=== PATIENT | male | born 1955 | race Caucasian/White ===

== ENCOUNTER → 2017-01-07 | Outpatient (CLI) | payer OTHER ==
[2016-04-23 00:33] VITALS: BP 106/60
[~2017-01-07] MED LIST: CYCL10TA2 PO; HYDR-971 PO; IOHEXOL 300 MG/ML 75 ML VIAL IV ONE; LISI-334 PO; NAPR250T2 PO; OMEP10CA PO; PRED20TA PO
--- NOTE | 2017-01-07 15:27 | RAD ---
CTA of the neck with contrast 01/07/2017 Clinical history: Carotid stenosis. Technique: After the intravenous administration of 75 cc of Omnipaque 300, contiguous, 0.625 mm axial sections were obtained through the upper chest and neck. Multiplanar 3-D MIP and 3-D volume rendered reconstructed images were performed. One or more of the following individualized dose reduction techniques were utilized for this study: 1. Automated exposure control. 2. Adjustment of the mA and/or kV according to patient size. 3. Use of iterative reconstruction technique. Stenosis calculations for CTA are based upon the NASCET methodology. Findings: There is a common origin of the brachiocephalic and left common carotid artery from the thoracic aortic arch. As a normal variation. This origin is patent. The origin of the left subclavian artery is patent. The origins of the brachiocephalic, common carotid, right common carotid artery and both vertebral arteries are patent. Mild to moderate atheromatous/atherosclerotic plaque formation is seen involving both carotid bifurcations and proximal internal carotid arteries, right greater than left. A 75% stenosis (using NASCET criteria) is seen involving the proximal right internal carotid artery at its origin. This measures 8 mm in length. No hemodynamically significant stenosis is seen involving the left carotid bifurcation. The left vertebral artery is dominant. Both vertebral arteries demonstrate normal antegrade flow. No area of stenosis or occlusion is seen. No acute soft tissue abnormality is seen involving the neck. Degenerative changes are seen involving the uncovertebral and facet joints throughout the mid and lower cervical disc spaces. Impression: Mild to moderate atheromatous/atherosclerotic plaque formation seen involving both carotid bifurcations, right greater than left. A stenosis of 75% is seen involving the proximal right internal carotid artery at its origin.
== END | disposition home or self-care (01) ==
LOC: CT 10:10
PROVIDERS: ATTEND Internal Medicine Cardiovascular Disease
DX: I65.23 Occlusion and stenosis of bilateral carotid arteries (principal)
CPT/HCPCS: 70498

== ENCOUNTER 2017-02-07 12:30 | Inpatient (IN) | payer OTHER ==
[~2017-02-07] VITALS: Ht 182.9 cm; Wt 120.2 kg
[~2017-02-07 12:30] MED LIST changes: -IOHEXOL 300 MG/ML 75 ML VIAL IV ONE
[2017-02-11] MEDS ORDERED: VALS320T2 PO (12:54)
[2017-02-11] MEDS ORDERED: ASPI-482 PO (12:54)
[2017-02-11] MEDS ORDERED: HYDR12.53 PO (12:55)
[2017-02-11] MEDS ORDERED: NAPR500T3 PO (12:55)
[2017-02-11] MEDS ORDERED: AMIT75TA PO (12:56)
[2017-02-11] MEDS ORDERED: OMEP20CA9 PO (12:56)
[2017-02-11] MEDS ORDERED: HYDR-2762 PO (12:56)
[2017-02-12] VITALS (10 sets, daily range): BP systolic 120–144; BP diastolic 67–83
[2017-02-12] MEDS ORDERED: HEPARIN SODIUM 5,000 UNIT in IV RINGERS,LACTATED 500ML 500 ML IRR ONE (06:00)
--- NOTE | 2017-02-12 06:18 | HP ---
ADMIT DATE: 02/12/2017 DIAGNOSIS: Right carotid stenosis. HISTORY OF PRESENT ILLNESS: A 61-year-old male, who has had two new black-out spells associated with an unsteady gait, but no lateralizing symptoms. A carotid Doppler showed a 70-75% stenosis of the right internal carotid artery with minimal disease on the left side. This was confirmed with a CT angiogram. He saw me in the office and we discussed options. He is admitted at this time for an elective right carotid endarterectomy. MEDICATIONS: See his reconciliation list. He is on aspirin 81 mg a day. PREOPERATIVE ILLNESSES: His only illness is hypertension. He is on couple of medications for that. PRIOR OPERATIONS: Spinal fusion in 2009, knee replacement on the left in 2011, and another spinal operation in 2012. SOCIAL HISTORY: He does smoke less than a half a pack a day. ALLERGIES: None known. REVIEW OF SYSTEMS: Negative for claudication, diabetes, or coronary artery disease. PHYSICAL EXAMINATION: GENERAL: A pleasant male in no acute distress. NECK: A 2+ carotids, no bruits. HEART: 2+ radial pulses. Heart rate is regular. CHEST: Clear. EXTREMITIES: A 2+ popliteal pulses. NEUROLOGIC: He is neurologically intact. IMPRESSION: Right carotid stenosis, probably symptomatic. PLAN: Right carotid endarterectomy under cervical block anesthetic. The nature of that procedure and the risks of bleeding, infection, stroke, nerve injury, and recurrent disease were discussed and he is agreeable to proceed. TSERING NOLAN MD DR: MINH/luli JOB#: [id number] / [id number]
[2017-02-12 06:36] LABS: BASO # 0.2 x10^3/uL (0.0-0.2); BASO % 3 % (0-3); EOS % 5 % (0-3); HEMATOCRIT 47.1 % (39.0-53.0); LYMPH # 2.4 x10^3/uL (1.0-4.8); LYMPH % 30 % (24-48); MEAN CORPUSCULAR HEMOGLOBIN 30 pg (25-35); MEAN CORPUSCULAR HGB CONC 34 g/dL (31-37); MEAN CORPUSCULAR VOLUME 89 fL (79-100); MONO % 11 % (0-9); NEUT % 51 % (31-73); PLATELET COUNT 273 x10^3/uL (140-400); RED BLOOD COUNT 5.27 x10^6/uL (4.30-5.70); RED CELL DISTRIBUTION WIDTH 13.8 % (11.5-14.5); WHITE BLOOD COUNT 7.8 x10^3/uL (4.0-11.0)
[2017-02-12] MEDS ORDERED: fentaNYL PF VIAL 100 MCG/2 ML VIAL ONE (06:43)
[2017-02-12] MEDS ORDERED: MIDAZOLAM HCL/PF 2 MG/2 ML VIAL. ONE (06:43)
[2017-02-12 06:49] LABS: PROTHROMBIN TIME PATIENT 12.7 SEC (11.7-14.0)
[2017-02-12 06:54] LABS: CALCIUM 9.2 mg/dL (8.5-10.1); GFR 75.7; POTASSIUM 3.9 mmol/L (3.5-5.1)
[2017-02-12] MEDS ORDERED: SURGICEL FIBRILLAR 1X2 EACH. ONE (06:58)
[2017-02-12] MEDS ORDERED: LIDOCAINE 1% PF 30 ML VIAL. ONE (06:58)
[2017-02-12] MEDS ORDERED: PROTAMINE 50 MG/5 ML VIAL. IV ONE (06:58)
[2017-02-12] MEDS ORDERED: LIDOCAINE 1% 1 ML SYRINGE. ID PRN (07:00)
[2017-02-12] MEDS ORDERED: MORPHINE SULFATE 2 MG/ML DISP.SYRIN. IV PRN ×2 (07:00)
[2017-02-12] MEDS ORDERED: fentaNYL PF VIAL 100 MCG/2 ML VIAL IV PRN (07:00)
[2017-02-12] MEDS ORDERED: 0.9 % SODIUM CHLORIDE 10 ML DISP.SYRIN. IV PRN (07:00)
[2017-02-12] MEDS ORDERED: IV RINGERS,LACTATED 1000ML 1,000 ML IV SCH (07:00)
[2017-02-12] MEDS ORDERED: hydrALAZINE 20 MG/ML VIAL. IVP PRN (07:00)
[2017-02-12] MEDS ORDERED: ONDANSETRON PF 4 MG/2 ML VIAL. IV PRN ×2 (07:00)
[2017-02-12] MEDS: IV NORMAL SALINE 1000ML BAG 1,000 ML IV SCH ×2 (07:00→20:50)
[2017-02-12] MEDS ORDERED: oxyCODONE/APAP 5/325 1 TAB TABLET PO PRN (07:00)
[2017-02-12] MEDS ORDERED: MAGNESIUM HYDROXIDE 2,400 MG/30 ML ORAL.SUSP. PO PRN (07:00)
[2017-02-12] MEDS ORDERED: LABETALOL 20 MG/4 ML DISP.SYRIN. IVP PRN (07:00)
[2017-02-12] MEDS ORDERED: PROCHLORPERAZINE 10 MG/2 ML VIAL. IV PRN (07:00)
[2017-02-12] MEDS ORDERED: HYDROmorphone 2 MG/ML VIAL IV PRN (07:00)
--- NOTE | 2017-02-12 07:05 | DISCH ---
DISCHARGE INSTRUCTIONS Condition on Discharge Condition on Discharge: Stable Activity After Discharge Activity Instructions for Disc: No restrictions Driving Instructions after Dis: Do not drive today Diet after Discharge Diet after Discharge: Cardiac Wound Incision Care Wound/Incision Care: Ice to area for comfort, May get incision wet Follow-Up Follow up with: Kira Boyce [phone] in 2 weeks TSERING BOYCE MD February 12, 2017 07:05
[2017-02-12] MEDS ORDERED: LIDOCAINE 2% TOPICAL JELLY 5GM TUBE. TP ONE (07:11)
[2017-02-12] MEDS ORDERED: ROPIVacaine 0.5% PF 30 ML VIAL. ONE (07:16)
[2017-02-12] MEDS ORDERED: PANTOPRAZOLE 40 MG TABLET.DR. PO SCH (07:30)
[2017-02-12] MEDS ORDERED: HEPARIN for IV BOLUS 10,000 UNIT/10 ML VIAL. ONE (07:46)
--- NOTE | 2017-02-12 08:55 | PDOC ---
BRIEF OPERATIVE NOTE Date: February 12, 2017 Pre-Op Diagnosis Rt carotid stenosis Post-Op Diagnosis Same Procedure Performed Rt CEA, eversion Surgeon Kira Boyce Online Advertising Director Lana Anesthesia Type: Regional Blood Loss 40 Specimens Obtained Plaque Findings ~ 80-90% stenosis, tolerated cross clamp Complications none TSERING BOYCE MD February 12, 2017 08:55
[2017-02-12] MEDS ORDERED: hydroCHLOROthiazide 25 MG TABLET PO SCH (09:00)
[2017-02-12] MEDS ORDERED: LOSARTAN POTASSIUM 50 MG TABLET. PO SCH (09:00)
[2017-02-12] MEDS ORDERED: ASPIRIN ENTERIC COATED 81 MG TABLET.DR. PO SCH (09:00)
[2017-02-12] MEDS: fentaNYL PF VIAL 100 MCG/2 ML VIAL IV PRN ×2 (09:14→09:44)
[2017-02-12] MEDS ORDERED: NAPROXEN 500 MG TABLET PO SCH (11:00)
--- NOTE | 2017-02-12 12:26 | OP ---
DATE OF SURGERY: 02/12/2017 PREOPERATIVE DIAGNOSIS: Right carotid stenosis. POSTOPERATIVE DIAGNOSIS: Right carotid stenosis. PROCEDURE PERFORMED: Right carotid endarterectomy, eversion technique. SURGEON: Levar Boyce M.D. ANESTHESIA: Cervical block. AUTOMOBILE MECH[employer]IC MOTOR: . INDICATIONS: A 61-year-old male with asymptomatic right carotid stenosis about 80 plus percent stenosis on a carotid Doppler, minimal disease, left. FINDINGS: At least an 80-90% stenosis. He tolerated cross clamping without neurological change. DESCRIPTION OF PROCEDURE: After cervical block anesthetic, prepping and draping, incision was made along the anterior border of the right sternocleidomastoid muscle, carried through platysma with cautery, bleeding controlled with cautery. Blunt and sharp dissection was used to identify the common carotid artery dissected out, encircled with umbilical tape and Rumel tourniquet. He was given 8000 units of heparin IV. Dissection was continued cephalad crossing vessels divided between silk ties or Hemoclips. The bifurcation was infiltrated with lidocaine. The common was clamped after the 8000 units of heparin had circulated 3 minutes and he had no change in his neurological status. The external carotid and superior arteries were encircled with vessel loops and these were tightened and tacked down. The internal was then dissected out well above plaque, was soft, free of disease and clamped. The internal was circumferentially dissected out, transected obliquely at the bifurcation. The internal split posteromedially with the Ritter scissors. The common split anterolaterally. Eversion type endarterectomy done at the internal carotid artery, plaque breaking off very cleanly. A few loose intimal fibers were picked off with forceps. Standard endarterectomy done at the common and external carotid artery and plaque broke off cleanly there as well. Once the vessels were clean, the internal was reattached to common as a patch angioplasty using a running circumferential 6-0 Prolene stitch. Just prior to complete closure, forward bleeding was checked, back bleeding checked. The vessel was irrigated free of blood and air with heparinized saline solution and closure completed. The internal clamp was released. Pressure was held across the orifice. The internal and external carotid artery Vesseloop was released. Common carotid clamp released allowing flow initially to the external system. After several heartbeats, flow was allowed into the internal carotid artery. Minimal bleeding along the suture lines, couple of additional adventitial stitches were needed to control bleeding. The wound was irrigated. Some additional wound edge bleeding controlled with cautery. A 7 mm Marlon-Stringer drain placed into the wound and brought through a separate stab incision. A fibular Surgicel packed around suture lines. Incision was then closed with a running 2-0 Vicryl for the platysma, subcuticular 4-0 Vicryl, Mastisol, Steri-Strips, sterile dressings were applied. The patient tolerated procedure well and left the operating room in stable condition, neurologically intact. ESTIMATED BLOOD LOSS: 40 mL. LEVAR BOYCE MD DR: MINH/luli JOB#: [id number] / [id number]
[2017-02-12] MEDS: HYDROcodone/APAP 7.5/325MG 1 TAB TABLET PO PRN ×2 (12:37→19:15)
[2017-02-12] MEDS ORDERED: AMITRIPTYLINE HCL 25 MG TABLET. PO SCH (21:00)
[2017-02-13 03:50] VITALS: BP 117/81
[2017-02-13] MEDS: HYDROcodone/APAP 7.5/325MG 1 TAB TABLET PO PRN (04:00)
--- NOTE | 2017-02-13 06:30 | PDOC ---
Provider Note Provider Note POD # 1 Post op rt CEA C/O MALHOTRA , neck pain Incision clean, drain removed Neuro intact Imp: Stable and ready for discharge Plan: Home today TSERING NOLAN MD February 13, 2017 06:30
--- NOTE | 2017-02-13 08:08 | DS ---
DATE OF DISCHARGE: 02/13/2017 PRINCIPAL DIAGNOSIS: Right carotid stenosis. SECONDARY DIAGNOSES: Hypertension, hypercholesterolemia. PROCEDURES: On 02/12/2017, a right carotid endarterectomy, eversion technique. HISTORY OF PRESENT ILLNESS: This is a 61-year-old male seen with dizziness and lightheadedness who on a carotid Doppler was found to have 80+% stenosis of the right internal carotid artery, minimal disease on the left. No history of stroke or TIAs. HOSPITAL COURSE: On the day of admission, the patient underwent a right carotid endarterectomy under cervical block anesthetic, using the eversion technique. He was observed overnight on telemetry. He had a little bit of a headache and some incisional pain, but the following morning, incision was clean. Drain was removed. He was neurologically intact. Discharged home in stable condition. DISPOSITION: Home. DISCHARGE MEDICATIONS: See his reconciliation list. DISCHARGE DIET: Low-salt, low-cholesterol, cardiac. DISCHARGE INSTRUCTIONS: May resume usual activities. No driving for a few days. May shower tomorrow. Follow up in the office in 2-4 weeks after discharge. TSERING NOLAN MD DR: MINH/luli JOB#: [id number] / [id number]
== END 2017-02-13 07:10 | disposition home or self-care (01) | DRG 39 ==
LOC: OBSVTOIN 02-12 05:40 → OPSVCIP 02-12 05:40 → 2 NORTH 02-12 10:18
PROVIDERS: ADMIT Specialist; ATTEND Specialist
PROC: 03CM0ZZ Extirpation of Matter from Right External Carotid Artery, Open Approach (ICD-10-PCS; 2017-02-12)
PROC: 03CK0ZZ Extirpation of Matter from Right Internal Carotid Artery, Open Approach (ICD-10-PCS; 2017-02-12)
PROC: 03CH0ZZ Extirpation of Matter from Right Common Carotid Artery, Open Approach (ICD-10-PCS; principal; 2017-02-12 07:30)
DX: I65.21 Occlusion and stenosis of right carotid artery (principal); I10 Essential (primary) hypertension; F17.210 Nicotine dependence, cigarettes, uncomplicated; E78.00 Pure hypercholesterolemia, unspecified; Z96.659 Presence of unspecified artificial knee joint; Z98.1 Arthrodesis status
CPT/HCPCS: 36415; 80048; 85027; 85610; 85730; C1769; G0378; G0379; J0690; J2250; J2795; J3010; J7030; J7040; J7120

== ENCOUNTER → 2017-08-20 | Outpatient (CLI) | payer OTHER ==
[~2017-08-20] MED LIST changes: +AMIT75TA PO; +ASPI-482 PO; +HYDR-2762 PO; +HYDR12.53 PO; -NAPR250T2 PO; +NAPR250T6 PO; +NAPR500T4 PO; +OMEP20CA9 PO; +TIZA4TAB PO; +VALS320T2 PO
[2017-08-20 14:07] LABS: BASO # 0.1 x10^3/uL (0.0-0.2); BASO % 1 % (0-3); EOS % 5 % (0-3); HEMATOCRIT 47.8 % (39.0-53.0); HEMOGLOBIN 15.8 g/dL (13.0-17.5); LYMPH # 2.1 x10^3/uL (1.0-4.8); LYMPH % 28 % (24-48); MEAN CORPUSCULAR HEMOGLOBIN 30 pg (25-35); MEAN CORPUSCULAR HGB CONC 33 g/dL (31-37); MEAN CORPUSCULAR VOLUME 92 fL (79-100); MONO % 9 % (0-9); NEUT % 57 % (31-73); PLATELET COUNT 223 x10^3/uL (140-400); RED BLOOD COUNT 5.21 x10^6/uL (4.30-5.70); WHITE BLOOD COUNT 7.6 x10^3/uL (4.0-11.0)
[2017-08-20 14:18] LABS: PROTHROMBIN TIME PATIENT 12.7 SEC (11.7-14.0)
[2017-08-20 14:20] LABS: ALBUMIN 4.1 g/dL (3.4-5.0); CALCIUM 9.5 mg/dL (8.5-10.1); CREATININE 0.9 mg/dL (0.7-1.3); GFR 85.2; POTASSIUM 4.2 mmol/L (3.5-5.1)
--- NOTE | 2017-08-20 14:31 | EKG ---
[facility] [address] [place] [address] Test Date: 2017-08-20 Test Time: 14:29:54 Pat Name: WILMER WIN Department: Room: Gender: M Sales Representative Facility Services: [facility] : 1955 Requested By: BRIAN AMAYA Order Number: [id number] Reading MD: Rex Buenrostro MD Measurements Intervals [place] Rate: 84 P: 38 MO: 164 QRS: 24 QRSD: 76 T: 71 QT: 332 QTc: 395 Interpretive Statements SINUS RHYTHM Electronically Signed On 08-21-2017 11:42:10 LEASING SALES CONSULTANT by Rex Buenrostro MD
[2017-08-20 14:42] LABS: BILIRUBIN,URINE NEGATIVE (NEG); GLUCOSE,URINE NEGATIVE (NEG); NITRITE,URINE NEGATIVE (NEG); PH,URINE 6.5; PROTEIN,URINE NEGATIVE (NEG-TRACE); UROBILINOGEN,URINE 0.2 mg/dL (0.2 mg/dL)
[2017-08-20 14:55] LABS: BACTERIA,URINE 0 /HPF (0-FEW); RBC,URINE 0 /HPF (0-2); SQUAMOUS EPITHELIAL CELL,UR FEW /LPF; WBC,URINE 0 /HPF (0-4)
--- NOTE | 2017-08-20 15:51 | RAD ---
EXAM: Chest 2 views. HISTORY: Preoperative risk factors. COMPARISON: None. FINDINGS: Frontal and lateral views of the chest are obtained. There are no confluent infiltrates. There is no pneumothorax or pleural effusion. The heart is not enlarged. IMPRESSION: 1. No confluent infiltrates.
== END | disposition home or self-care (01) ==
LOC: SURGPAT 13:26
PROVIDERS: ATTEND Orthopaedic Surgery
DX: Z01.818 Encounter for other preprocedural examination (principal)
CPT/HCPCS: 36415; 71020; 80048; 81001; 82040; 82306; 85025; 85610; 85651; 85730; 87641; 93005

== ENCOUNTER → 2017-10-23 | Outpatient (CLI) | payer OTHER ==
[2017-10-23] MEDS: ALPRAZolam 0.25 MG TABLET PO (10:57)
[2017-10-23] MEDS: REGADENOSON 0.4 MG/5 ML DISP.SYRIN. IV (12:30)
== END | disposition home or self-care (01) ==
LOC: NM 08:27
DX: I73.9 Peripheral vascular disease, unspecified (principal)
CPT/HCPCS: 78452; 93017; 96374; 96375; 96376; A9500; J2785

== ENCOUNTER → 2017-12-09 | Outpatient (CLI) | payer OTHER | END | disposition home or self-care (01) | LOC: MRI 08:23 | DX: M48.061 Spinal stenosis, lumbar region without neurogenic claudication (principal); M51.36 Other intervertebral disc degeneration, lumbar region; Z98.890 Other specified postprocedural states | CPT/HCPCS: 72148 ==

== ENCOUNTER 2018-02-04 10:54 | Observation (INO) | payer OTHER ==
[2018-02-04] MEDS ORDERED: fentaNYL PF VIAL 100 MCG/2 ML VIAL ×2 (11:07→14:22)
[2018-02-04] MEDS ORDERED: DEXAMETHASONE SOD PHOS 20 MG/5 ML VIAL. (11:07)
[2018-02-04] MEDS ORDERED: PROPOFOL 20 ML IV ×2 (11:07→13:58)
[2018-02-04] MEDS ORDERED: ONDANSETRON PF 4 MG/2 ML VIAL. (11:07)
[2018-02-04] MEDS ORDERED: ROCURONIUM 50 MG/5 ML VIAL. (11:07)
[2018-02-04] MEDS ORDERED: FAMOTIDINE 20 MG/2 ML VIAL (11:07)
[2018-02-04] MEDS ORDERED: LIDOCAINE 2% PF Vial for OR 5 ML VIAL. (11:07)
[2018-02-04] MEDS ORDERED: MIDAZOLAM HCL/PF 2 MG/2 ML VIAL. (11:08)
[2018-02-04 11:21] LABS: ADD MAN DIFF? NO
[2018-02-04 11:27] LABS: BASO # 0.1 x10^3/uL (0.0-0.2); BASO % 1 % (0-3); EOS # 0.3 x10^3/uL (0.0-0.7); EOS % 3 % (0-3); HEMATOCRIT 48.3 % (39.0-53.0); HEMOGLOBIN 15.8 g/dL (13.0-17.5); LYMPH % 24 % (24-48); MEAN CORPUSCULAR HEMOGLOBIN 27 pg (25-35); MEAN CORPUSCULAR HGB CONC 33 g/dL (31-37); MEAN CORPUSCULAR VOLUME 82 fL (79-100); MONO # 0.6 x10^3/uL (0.0-1.1); MONO % 7 % (0-9); NEUT # 5.4 x10^3uL (1.8-7.7); NEUT % 65 % (31-73); PLATELET COUNT 248 x10^3/uL (140-400); RED BLOOD COUNT 5.86 x10^6/uL (4.30-5.70); RED CELL DISTRIBUTION WIDTH 15.6 % (11.5-14.5); WHITE BLOOD COUNT 8.4 x10^3/uL (4.0-11.0)
[2018-02-04] MEDS: IV RINGERS,LACTATED 1000ML 1,000 ML IV ×2 (11:30→14:27)
[2018-02-04 11:37] LABS: PARTIAL THROMBOPLASTIN TIME 28 SEC (24-38); PROTHROMBIN TIME PATIENT 12.8 SEC (11.7-14.0)
[2018-02-04] MEDS ORDERED: ceFAZolin 2GM PREMIX 2 GM/50 ML BAG IV (12:00)
[2018-02-04 12:04] LABS: ANION GAP 10 (6-14); BLOOD UREA NITROGEN 17 mg/dL (8-26); CALCIUM 9.6 mg/dL (8.5-10.1); CARBON DIOXIDE 26 mmol/L (21-32); CHLORIDE 103 mmol/L (98-107); CREATININE 0.9 mg/dL (0.7-1.3); GFR 85.2; GLUCOSE 121 mg/dL (70-99); POTASSIUM 4.3 mmol/L (3.5-5.1); SODIUM 139 mmol/L (136-145)
[2018-02-04] MEDS: TRANEXAMIC ACID 1,000 MG in IV NORMAL SALINE 50ML 50 ML INJ ×2 (12:53→13:31)
[2018-02-04] MEDS: MORPHINE SULFATE 5 MG, KETOROLAC 30 MG, ROPIVacaine 0.5% PF 60 ML, EPINEPHrine 0.5 MG i... INT ART (13:00)
[2018-02-04] MEDS ORDERED: DESFLURANE 61 TO 120 MINUTES IH (13:41)
[2018-02-04] MEDS ORDERED: NEOSTIGMINE METHYLSULFATE 5 MG/5 ML SYRINGE. (13:45)
[2018-02-04] MEDS ORDERED: GLYCOPYRROLATE 1 MG/5 ML VIAL. (13:45)
[2018-02-04] MEDS ORDERED: KETOROLAC 30 MG/ML INJ. (14:21)
[2018-02-04] MEDS ORDERED: PROCHLORPERAZINE 5 MG TABLET. PO (14:30)
[2018-02-04] MEDS ORDERED: ZOLPIDEM 5 MG TABLET. PO (14:30)
[2018-02-04] MEDS ORDERED: diphenhydrAMINE 50 MG/ML VIAL IV (14:30)
[2018-02-04] MEDS ORDERED: CALCIUM CARBONATE 500 MG TAB.CHEW PO (14:30)
[2018-02-04] MEDS ORDERED: HYDROcodone/APAP 7.5/325MG 1 TAB TABLET PO (14:30)
[2018-02-04] MEDS ORDERED: PROCHLORPERAZINE 10 MG/2 ML VIAL. IV ×2 (14:30)
[2018-02-04] MEDS ORDERED: LIDOCAINE 1% PF 2 ML VIAL. ID (14:30)
[2018-02-04] MEDS ORDERED: MORPHINE SULFATE 10 MG/ML VIAL. IV (14:30)
[2018-02-04] MEDS ORDERED: ONDANSETRON PF 4 MG/2 ML VIAL. IV (14:30)
[2018-02-04] MEDS ORDERED: traMADol 50 MG TABLET PO ×2 (14:30)
[2018-02-04] MEDS ORDERED: oxyCODONE/APAP 7.5/325 1 TAB TABLET PO (14:30)
[2018-02-04] MEDS ORDERED: DEXTROSE 50% 25 GM / 50ML DISP.SYRIN. IV (14:30)
[2018-02-04] MEDS ORDERED: METOCLOPRAMIDE HCL 10 MG/2 ML VIAL. IV (14:30)
[2018-02-04] MEDS ORDERED: 0.9 % SODIUM CHLORIDE 10 ML DISP.SYRIN. IV (14:30)
[2018-02-04] MEDS ORDERED: fentaNYL PF VIAL 100 MCG/2 ML VIAL IV ×3 (14:30)
[2018-02-04] MEDS ORDERED: ACETAMINOPHEN 325 MG TABLET. PO (14:30)
[2018-02-04] MEDS ORDERED: oxyCODONE/APAP 5/325 1 TAB TABLET PO (14:30)
[2018-02-04] MEDS ORDERED: MORPHINE SULFATE 4 MG/ML DISP.SYRIN. IV ×3 (14:30)
[2018-02-04] MEDS: fentaNYL PF VIAL 100 MCG/2 ML VIAL IV ×4 (14:30→15:16)
[2018-02-04] MEDS ORDERED: MORPHINE SULFATE 4 MG/ML DISP.SYRIN. (14:45)
[2018-02-04] MEDS: MORPHINE SULFATE 4 MG/ML DISP.SYRIN. IV (14:47)
[2018-02-04] MEDS: HYDROcodone/APAP 10/325 1 TAB TABLET PO ×2 (16:30→22:12)
[2018-02-04] MEDS: FERROUS SULFATE 325 MG TABLET. PO (16:30)
[2018-02-04] MEDS: IV DEXTROSE 5 %-0.45 % NACL 1,000 ML IV (16:30)
[2018-02-04] MEDS: CELECOXIB 200 MG CAPSULE. PO (22:13)
[2018-02-05] MEDS: IV DEXTROSE 5 %-0.45 % NACL 1,000 ML IV (02:00)
[2018-02-05] MEDS ORDERED: MAGNESIUM HYDROXIDE 2,400 MG/30 ML ORAL.SUSP. PO (06:00)
[2018-02-05] MEDS: CELECOXIB 200 MG CAPSULE. PO (09:43)
[2018-02-05] MEDS: MULTIVITAMIN with MINERAL TABLET. PO (09:43)
[2018-02-05] MEDS: SENNOSIDES/DOCUSATE 8.6/50MG TABLET. PO (09:43)
[2018-02-05] MEDS: FERROUS SULFATE 325 MG TABLET. PO (09:43)
[2018-02-05] MEDS: HYDROcodone/APAP 10/325 1 TAB TABLET PO (09:47)
[2018-02-05] MEDS ORDERED: BISACODYL 10 MG SUPP.RECT. PR (16:00)
== END 2018-02-05 16:00 | disposition home or self-care (01) ==
LOC: SURG 10:54 → 4 NORTH 14:44
DX: S82.009A Unspecified fracture of unspecified patella, initial encounter for closed fracture (principal); G62.9 Polyneuropathy, unspecified; X58.XXXA Exposure to other specified factors, initial encounter; Y93.89 Activity, other specified; Y92.89 Other specified places as the place of occurrence of the external cause; Y99.8 Other external cause status
CPT/HCPCS: 27424; 36415; 73560; 80048; 85025; 85610; 85730; 87071; 87075; 87102; 87116; 87205; 88304; 88311; 96365; 96375; 97110-GP; 97116-GP; 97162-GP; 97165-GO; 97530-GP; A7015; C1713; G0378; G0379; G8978-CK-GP; G8979-CJ-GP; G8980-CJ-GP; J0171; J0690; J1100; J1885; J2250; J2270; J2405; J2704; J2710; J2795; J3010; J3490; J7120; S0028